=== PATIENT | male | born 1995 | race Caucasian/White ===

== ENCOUNTER 2020-07-01 11:15 | Emergency (ER) | payer BC ==
[2020-07-01 11:18] VITALS: BP 137/84; PULSE 80; RESP 18; TEMP 98.7
--- NOTE | 2020-07-01 11:39 | XR ---
EXAMINATION TYPE: XR shoulder complete LT DATE OF EXAM: 07/01/2020 COMPARISON: NONE HISTORY: Pain TECHNIQUE: Three views are submitted. FINDINGS: The osseous structures are intact. There is no acute fracture or dislocation. The AC joint is maint ained. IMPRESSION: 1. No acute process.
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
[2020-07-01] MEDS ORDERED: ACET/COD 300 MG/30 MG STARTER PACK 6 TAB BTL PO STA (12:25)
== END 2020-07-01 12:29 | disposition home or self-care (01) ==
LOC: EC 11:15
DX: S49.92XA Unspecified injury of left shoulder and upper arm, initial encounter (principal); Z88.0 Allergy status to penicillin; V87.8XXA Person injured in other specified noncollision transport accidents involving motor vehicle (traffic), initial encounter; Y92.488 Other paved roadways as the place of occurrence of the external cause; Y93.55 Activity, bike riding
CPT/HCPCS: 99283